=== PATIENT | male | born 1985 | race Caucasian/White ===

== ENCOUNTER → 2021-01-13 | Outpatient (CLI) | payer OTHER ==
--- NOTE | 2021-01-13 16:19 | KCIC ---
Two-view chest dated 01/13/2021. No comparison available. CLINICAL INDICATION: Midsternal pain for months. FINDINGS: PA and lateral views obtained. Heart and mediastinal contours within normal limits. Lungs are clear. No consolidation or pleural effusion. No pneumothorax. IMPRESSION: No acute radiographic abnormality. Electronically signed by: Checo Connell MD (01/13/2021 4:17 PM) [id number]
== END ==
LOC: KCIC 15:22
PROVIDERS: ATTEND Family Medicine
DX: R07.89 Other chest pain (principal)
CPT/HCPCS: 71046

== ENCOUNTER → 2021-02-17 | Outpatient (CLI) | payer OTHER ==
--- NOTE | 2021-02-17 13:05 | KCIC ---
EXAM: Chest, 2 views. HISTORY: Fever. COMPARISON: 01/13/2021 FINDINGS: 2 views of the chest are obtained. There is focal increased opacity within the inferior lat eral right thorax and the frontal projection which may be due to asymmetric overlying soft tissues or interstitial infiltrate. There is no consolidation, pleural effusion or pneumothorax. The heart is n ormal in size. IMPRESSION: Focal right lower thoracic opacity due to asymmetric overlying soft tissues or lower lobe interstitial infiltrate. Electronically signed by: Kim Leal MD (02/17/2021 1:02 PM) [id number]
== END ==
LOC: KCIC 12:29
PROVIDERS: ATTEND Family Medicine
DX: R50.9 Fever, unspecified (principal)
CPT/HCPCS: 71046

== ENCOUNTER → 2021-03-26 | Outpatient (CLI) | payer OTHER ==
--- NOTE | 2021-03-27 09:10 | KCIC ---
XR CERVICAL SPINE 2-3V History: Reason: Neck pain 1 month, no known injury. / Spl. Instructions: / History: Technique: 3 views cervical spine. Comparison: None. Findings: Normal vertebral body height and alignment. No acute fracture. Normal alignment C1 on C2. Disc spaces are well-maintained. Prevertebral soft tissues are unremarkable. Impression: 1. No acute osseous abnormality. Electronically signed by: Colt Ronquillo DO (03/27/2021 9:08 AM) [id number]
== END ==
LOC: KCIC 10:55
PROVIDERS: ATTEND Family Medicine
DX: M54.2 Cervicalgia (principal)
CPT/HCPCS: 72040

== ENCOUNTER → 2021-06-02 | Outpatient (CLI) | payer OTHER ==
[~2021-06-02] VITALS: Ht 180.3 cm; Wt 82.6 kg
[~2021-06-02] MED LIST: NORMAL SALINE IV ONE; OXYC-325 PO; SINCALIDE IV ONE
--- NOTE | 2021-06-02 10:39 | RAD ---
INDICATION: Reason: NEUTROPENIA, FEVER / Spl. Instructions: / History: Abdomen pain. COMPARISON: None. TECHNIQUE: 5.5mCi of Tc99m Choletec was injected intravenously followed by scintigraphic images of the abdomen. 1.7 mcg of CCK was then injected and a gallbladder ejection fraction was calculated. FINDINGS: Appropriate radiotracer clearance from the blood pool. Appropriate radiotracer excretion into the biliary tree. Prompt passage of contrast into the small bowel. Visualization of the gallbladder prior to the 60 minute time point. Gallbladder ejection fraction is 10 percent. IMPRESSION: * No scintigraphic evidence of acute cholecystitis or high grade biliary obstruction. * Gallbladder ejection fraction is decreased. Can be seen with causes such as biliary dyskinesia. Electronically signed by: Kareem Erickson MD (06/02/2021 10:37 AM) [id number]
== END ==
LOC: NM 10:21
PROVIDERS: ATTEND Family Medicine
DX: D70.9 Neutropenia, unspecified (principal); R50.9 Fever, unspecified
CPT/HCPCS: 78227; A9537; J2805

== ENCOUNTER → 2021-06-30 | Outpatient (CLI) | payer OTHER ==
[~2021-06-30] MED LIST changes: -NORMAL SALINE IV ONE; -SINCALIDE IV ONE
== END ==
LOC: LAB 10:01
PROVIDERS: ATTEND Surgery
DX: Z01.812 Encounter for preprocedural laboratory examination (principal); Z20.822 Contact with and (suspected) exposure to COVID-19; K82.8 Other specified diseases of gallbladder
CPT/HCPCS: U0003; U0005

== ENCOUNTER 2021-07-05 09:20 | Day surgery (SDC) | payer OTHER ==
[~2021-07-05] VITALS: Ht 180.3 cm; Wt 82.0 kg
[~2021-07-05 09:20] MED LIST changes: +HYDROmorphone 2 MG/ML VIAL IVP PRN; +IV RINGERS,LACTATED 1000ML 1,000 ML IV SCH; +MORPHINE SULFATE 2 MG/ML INJ. IVP PRN; -OXYC-325 PO; +PROCHLORPERAZINE 10 MG/2 ML VIAL. IVP PRN; +fentaNYL PF VIAL 100 MCG/2 ML VIAL IVP PRN
[2021-07-05 09:45] VITALS: BP 138/79
[2021-07-05] MEDS ORDERED: ROCURONIUM 50 MG/5 ML VIAL. ONE (10:04)
[2021-07-05] MEDS ORDERED: NEOSTIGMINE METHYLSULFATE 5 MG/5 ML SYRINGE. ONE (10:04)
[2021-07-05] MEDS ORDERED: SEVOFLURANE 31 TO 60 MINUTES. IH ONE (10:04)
[2021-07-05] MEDS ORDERED: PROPOFOL 10 MG/ML (20ML) VIAL. IV ONE (10:04)
[2021-07-05] MEDS ORDERED: DEXAMETHASONE SOD PHOS 4 MG/ML VIAL ONE (10:04)
[2021-07-05] MEDS ORDERED: ONDANSETRON PF 4 MG/2 ML VIAL. ONE (10:04)
[2021-07-05] MEDS ORDERED: MIDAZOLAM HCL/PF 2 MG/2 ML VIAL. ONE (10:04)
[2021-07-05] MEDS ORDERED: GLYCOPYRROLATE 1 MG/5 ML VIAL. ONE (10:04)
[2021-07-05] MEDS ORDERED: fentaNYL PF VIAL 100 MCG/2 ML VIAL ONE ×2 (10:04→12:33)
[2021-07-05] MEDS ORDERED: IOHEXOL 300 MG/ML 50 ML VIAL. ONE (10:26)
[2021-07-05] MEDS ORDERED: SURGICEL HEMOSTAT 4X8 EACH. ONE (10:26)
[2021-07-05] MEDS ORDERED: BUPIVACAINE MPF 0.5% 30 ML VIAL. ONE (10:27)
[2021-07-05] MEDS ORDERED: DEXMEDETOMIDINE 200 MCG/2 ML VIAL. IV PRN (11:30)
[2021-07-05] MEDS ORDERED: DEXMEDETOMIDINE 400 MCG in IV NORMAL SALINE 100ML 96 ML IV PRN (11:30)
[2021-07-05] MEDS ORDERED: HYDROmorphone 2 MG/ML VIAL ONE (11:39)
[2021-07-05] MEDS ORDERED: ePHEDrine PF IN SALINE 50 MG/10 ML SYRINGE. IV ONE (12:10)
--- NOTE | 2021-07-05 12:24 | RAD ---
C-arm fluoroscopy with fluoroscopic spot views Clinical indications: Laparoscopic cholecystectomy. Intraoperative cholangiogram. History of low gall bladder ejection fraction. Total fluoroscopic time: 0.7 minutes. Total fluoroscopic spot images: 3. FINDINGS/ IMPRESSION: No dilatation of the extrahepatic biliary tree is seen. There is free flow of contrast ma terial from the common bile duct into the duodenum. No stricture or stone is apparent. Electronically signed by: Marcus Roberto MD (07/05/2021 12:22 PM) [id number]
--- NOTE | 2021-07-05 12:28 | PDOC4 ---
Operative Note Operative Note Operative Note: Preoperative Diagnosis: Biliary dyskinesia Postoperative Diagnosis: Same Procedure: Laparoscopic cholecystectomy with intraoperative cholangiogram Surgeons: Yao Delivery Table Operator: Miguel Chin MS 4 Anesthesia: Gen. Estimated Blood Loss: 10 mL Specimen: Gallbladder to pathology Drains: None Complications: None Indications: The patient is a 35-year-old male who is referred with biliary dysk inesia.. Surgical treatment was offered by means of a laparoscopic cholecystectomy. The risks of surgery were discussed which include bleeding, infection, bile duct injury, bile leak, pain, the potential for additional surgeries or procedures. The patient understands and would like to proceed. Description: The patient was taken to the operating room and laid supine on the operating table. General anesthesia was performed. The abdomen was prepped with ChloraPrep and draped in a standard surgical fashion. A small infraumbilical incision was made with a scalpel. The Veress needle was then inserted and a pneumoperitoneum was then created. A 5 mm trocar was then inserted and the laparoscope was introduced. In the upper midabdomen a 5 mm trocar was inserted and in the right upper quadrant two 2.3 mm mini lap graspers were inserted. The gallbladder was retracted cephalad. The cystic duct was dissected free from surrounding tissues. One clip was placed on the duct near the gallbladder junction. An opening was made in the duct and a cholangiocatheter placed within and secured with a clip. Using contrast dye and fluoroscopy an intraoperative cholangiogram was performed that appeared unremarkable. The clip and catheter were then withdrawn. Three clips were placed on the cystic duct and it was divided. The cystic artery was then identified, dissected free, doubly clipped and divided as well. The gallbladder was then mobilized away from the liver with cautery. The umbilical 5 millimeter trocar was exchanged for an 11 millimeter trocar. The gallbladder was then placed in an endoscopic bag and extracted at the umbilical trocar site. The fascia there was closed with an 0 Vicryl suture and infiltrated with 0.5% marcaine. All blood and irrigation fluid was suctioned and hemostasis was good. The remaining ports were removed and the pneumoperitoneum was relieved. The skin incisions were closed using 4-0 Monocryl suture. Steri-Strips and dressings were then applied. The patient tolerated the procedure well and was sent to the recovery room in stable condition. At the end of the case all counts were correct. REGINA CARVALHO MD Jul 05, 2021 12:28
[2021-07-05] MEDS ORDERED: OXYC-325 PO (12:30)
--- NOTE | 2021-07-05 12:30 | DISCH ---
DISCHARGE INSTRUCTIONS Condition on Discharge Condition on Discharge: Stable Activity After Discharge Activity Instructions for Disc: Other, see below (no lifting over 20 lbs X 2 weeks, no driving while taking pain meds) Diet after Discharge Diet after Discharge: Regular Wound Incision Care Wound/Incision Care: Other, see below (may remove bandaids tomorrow and shower) Follow-Up Follow up with: Dr Carvalho in office in 2 weeks, call for appointment REGINA CARVALHO MD Jul 05, 2021 12:30
[2021-07-05] MEDS: fentaNYL PF VIAL 100 MCG/2 ML VIAL IVP PRN ×2 (12:35→12:53)
[2021-07-05] MEDS ORDERED: oxyCODONE/APAP 5/325 1 TAB TABLET ONE (12:57)
[2021-07-05] MEDS ORDERED: oxyCODONE/APAP 5/325 1 TAB TABLET PO ONE ×2 (13:00→16:00)
[2021-07-05 13:06] VITALS: BP 117/75
--- NOTE | 2021-07-06 13:10 | PATHOLOGY ---
[facility] Accession Number: [id number] . 01 Material submitted: . gallbladder - GALLBLADDER AND CONTENTS . 01 Clinical history: . LAP EVA W/ GRAMS . 02 Diagnosis: Gallbladder, laparoscopic cholecystectomy: - Chronic cholecystitis. LBQ 07/06/2021 1004 Local . 02 Comment: There are no calculi identified within the gallbladder lumen or specimen container. There is no evidence of malignancy. (JPM/db; 07/06/2021) . 02 Electronically signed: . Bennie Stanton MD, Pathologist NPI- [id number] . 01 Gross description: . Fixative: Formalin Labeled: Gallbladder and contents Specimen received: Intact gallbladder Dimensions: 6.7 x 3.1 x 2.8 cm Serosa: Purple-snowden and smooth Lymph node: Not identified Mucosa: Velvety, bile-stained Average wall thickness: 0.1 cm Calculi: None present Abnormalities: None identified . A1- Register Clerk body, fundus, and the cystic duct margin. ([facility]; 07/05/2021) NRI/NRI 07/05/2021 1556 Local . 02 Pathologist provided ICD-10: K81.1 . 02 CPT . 190958 Specimen Comment: A courtesy copy of this report has been sent to [phone] Specimen Comment: Report sent to Performed at: 01 [facility] [address], [place] [id number] MD Elbert Kim MD Phone: [phone] Performed at: 02 [facility] [address] [place], [place] [id number] MD Bennie Stanton MD Phone: [phone]
== END 2021-07-05 13:42 | disposition home or self-care (01) ==
LOC: SURG 09:20
PROVIDERS: ATTEND Surgery
DX: K82.8 Other specified diseases of gallbladder (principal); K81.1 Chronic cholecystitis; Z79.899 Other long term (current) drug therapy; Z98.890 Other specified postprocedural states
CPT/HCPCS: 47563; 74300; J0690; J1100; J1170; J2250; J2405; J2704; J2710; J3010; J3490; Q9967; 88304; A4213; A4314; A4657; A4930; C1887

== ENCOUNTER 2021-07-27 01:19 | Emergency (ER) | payer OTHER ==
[~2021-07-27] VITALS: Ht 180.3 cm; Wt 81.8 kg
[~2021-07-27 01:19] MED LIST changes: -HYDROmorphone 2 MG/ML VIAL IVP PRN; -IV RINGERS,LACTATED 1000ML 1,000 ML IV SCH; -MORPHINE SULFATE 2 MG/ML INJ. IVP PRN; +OXYC-325 PO; -PROCHLORPERAZINE 10 MG/2 ML VIAL. IVP PRN; -fentaNYL PF VIAL 100 MCG/2 ML VIAL IVP PRN
[2021-07-27 01:57] LABS: BASO # 0.1 x10^3/uL (0.0-0.2); BASO % 1 % (0-3); EOS # 0.2 x10^3/uL (0.0-0.7); EOS % 3 % (0-3); HEMATOCRIT 42.2 % (39.0-53.0); HEMOGLOBIN 14.3 g/dL (13.0-17.5); LYMPH % 56 % (24-48); MEAN CORPUSCULAR HEMOGLOBIN 31 pg (25-35); MEAN CORPUSCULAR HGB CONC 34 g/dL (31-37); MEAN CORPUSCULAR VOLUME 93 fL (79-100); MONO # 0.4 x10^3/uL (0.0-1.1); MONO % 6 % (0-9); NEUT # 2.4 x10^3/uL (1.8-7.7); NEUT % 34 % (31-73); PLATELET COUNT 217 x10^3/uL (140-400); RED BLOOD COUNT 4.56 x10^6/uL (4.30-5.70); RED CELL DISTRIBUTION WIDTH 12.5 % (11.5-14.5); WHITE BLOOD COUNT 7.1 x10^3/uL (4.0-11.0)
[2021-07-27 02:08] LABS: CALCIUM 9.2 mg/dL (8.5-10.1); CREATININE 0.9 mg/dL (0.7-1.3); POTASSIUM 3.5 mmol/L (3.5-5.1)
[2021-07-27 02:12] LABS: ALBUMIN 4.1 g/dL (3.4-5.0); ALBUMIN/GLOBULIN RATIO 1.1 (1.0-1.7); TOTAL BILIRUBIN 0.4 mg/dL (0.2-1.0); TOTAL PROTEIN 7.9 g/dL (6.4-8.2)
[2021-07-27] MEDS ORDERED: CONTRAST GIVEN. MC PRN (02:15)
[2021-07-27 02:26] LABS: BILIRUBIN,URINE NEGATIVE (NEG); CLARITY,URINE CLEAR; COLOR,URINE YELLOW; NITRITE,URINE NEGATIVE (NEG); PROTEIN,URINE NEGATIVE (NEG-TRACE); UROBILINOGEN,URINE 0.2 mg/dL (0.2 mg/dL)
[2021-07-27] MEDS ORDERED: KETOROLAC 30 MG/ML VIAL. IVP ONE (02:30)
[2021-07-27] MEDS ORDERED: DICYCLOMINE 20 MG/2 ML VIAL. IM ONE (02:30)
[2021-07-27] MEDS ORDERED: IOHEXOL 300 MG/ML 100ML VIAL. IV ONE (02:30)
[2021-07-27 02:36] LABS: BACTERIA,URINE 0 /HPF (0-FEW); RBC,URINE 0 /HPF (0-2); WBC,URINE 0 /HPF (0-4)
--- NOTE | 2021-07-27 03:04 | EKG ---
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
--- NOTE | 2021-07-27 03:21 | PHYS DOC ---
Past Medical History Past Surgical History: Cholecystectomy Smoking Status: Never Smoker Alcohol Use: Occasionally Adult General Chief Complaint Chief Complaint: MULTIPLE COMPLAINTS HPI HPI The patient is a 35-year-old male with a history of laparoscopic cholecystectomy completed about 3 weeks ago. He presents for evaluation of acute onset of bilateral upper quadrant abdominal discomfort with radiation to the right upper back with onset about 45 minutes prior to arrival. Patient states he was sitting on the couch when pain started. It is crampy and waxes and wanes but never truly goes away. Severity about 6 out of 10 at present. Discomfort is directly reproducible to palpation of the upper abdomen. Associated nausea without vomiting. No associated fevers, upper respiratory congestion/rhinorrhea, cough, sore throat, shortness of breath or chest pain of any kind, specifically right-sided or lower abdominal pain of any kind, flank pain, midline back pain, dysuria, hematuria, polyuria or oliguria, groin pain, changes in bowel habits, weakness, numbness or tingling to arms or legs. Patient is alert and pleasantly and appropriately interactive and in no acute distress with completely appropriate vital signs upon initial evaluation here in the emergency department. He ambulated in with a narrow, steady, non-ataxic gait. Review of Systems Review of Systems A 12 point review of systems was completed and was negative except where noted in HPI above. Current Medications Current Medications Current Medications Medications (Trade) Dose Ordered Sig/Gerry Start Time Stop Time Status Last Admin Dose Admin Dicyclomine HCl (Bentyl) 20 mg 1X ONCE 07/27/21 02:30 07/27/21 02:31 DC 07/27/21 02:12 20 MG Famotidine (Pepcid) 20 mg 1X ONCE 07/27/21 04:15 07/27/21 04:16 UNV Info (CONTRAST GIVEN -- Rx MONITORING) 1 each PRN DAILY PRN 07/27/21 02:15 07/29/21 02:14 Iohexol (Omnipaque 300 Mg/ml) 75 ml 1X ONCE 07/27/21 02:30 07/27/21 02:31 DC 07/27/21 02:28 75 ML Ketorolac Tromethamine (Toradol 30mg Vial) 30 mg 1X ONCE 07/27/21 02:30 07/27/21 02:31 DC 07/27/21 02:12 30 MG Multi-Ingredient Mouthwash/Gargle (Gi Cocktail) 20 ml 1X ONCE 07/27/21 04:15 07/27/21 04:16 UNV Allergies Allergies Allergies Coded Allergies Type Severity Reaction Last Updated Verified No Known Drug Allergies 07/05/21 No Physical Exam Physical Exam Younger male appearing nontoxic and in no acute distress. Head is normocephalic and atraumatic. Neck is supple and nontender. Oropharynx is moist. Lungs are clear to auscultation at all stations. There is a normal S1 and S2 without rubs or gallops and capillary refill is appropriate, less than 2 seconds globally. Abdomen is soft and nondistended with mild bilateral upper quadrant tenderness to palpation without rebound or guarding. No lower abdominal tenderness to palpation. No pulsatile mass. Skin is warm and dry without cyanosis, clubbing or edema. Psychiatrically, the patient demonstrates appropriate mood and affect and is alert. Evaluation of the back reveals no erythema, warmth, swelling, midline tenderness, or other acute abnormality seen. Current Patient Data Vital Signs Vital Signs Date Time Temp Pulse Resp B/P (MAP) Pulse Ox O2 Delivery O2 Flow Rate FiO2 07/27/21 02:11 84 16 135/84 (101) 100 Room Air 07/27/21 01:40 97.4 97.4 Lab Values Laboratory Tests Test 07/27/21 01:42 07/27/21 02:19 White Blood Count 7.1 x10^3/uL (4.0-11.0) Red Blood Count 4.56 x10^6/uL (4.30-5.70) Hemoglobin 14.3 g/dL (13.0-17.5) Hematocrit 42.2 % (39.0-53.0) Mean Corpuscular Volume 93 fL (79-100) Mean Corpuscular Hemoglobin 31 pg (25-35) Mean Corpuscular Hemoglobin Concent 34 g/dL (31-37) Red Cell Distribution Width 12.5 % (11.5-14.5) Platelet Count 217 x10^3/uL (140-400) Neutrophils (%) (Auto) 34 % (31-73) Lymphocytes (%) (Auto) 56 % (24-48) H Monocytes (%) (Auto) 6 % (0-9) Eosinophils (%) (Auto) 3 % (0-3) Basophils (%) (Auto) 1 % (0-3) Neutrophils # (Auto) 2.4 x10^3/uL (1.8-7.7) Lymphocytes # (Auto) 4.0 x10^3/uL (1.0-4.8) Monocytes # (Auto) 0.4 x10^3/uL (0.0-1.1) Eosinophils # (Auto) 0.2 x10^3/uL (0.0-0.7) Basophils # (Auto) 0.1 x10^3/uL (0.0-0.2) Sodium Level 141 mmol/L (136-145) Potassium Level 3.5 mmol/L (3.5-5.1) Chloride Level 102 mmol/L (98-107) Carbon Dioxide Level 29 mmol/L (21-32) Anion Gap 10 (6-14) Blood Urea Nitrogen 15 mg/dL (8-26) Creatinine 0.9 mg/dL (0.7-1.3) Estimated GFR (Cockcroft-Gault) 95.0 BUN/Creatinine Ratio 17 (6-20) Glucose Level 87 mg/dL (70-99) Calcium Level 9.2 mg/dL (8.5-10.1) Total Bilirubin 0.4 mg/dL (0.2-1.0) Aspartate Amino Transferase (AST) 26 U/L (15-37) Alanine Aminotransferase (ALT) 46 U/L (16-63) Alkaline Phosphatase 61 U/L (46-116) Troponin I High Sensitivity 6 ng/L (4-75) Total Protein 7.9 g/dL (6.4-8.2) Albumin 4.1 g/dL (3.4-5.0) Albumin/Globulin Ratio 1.1 (1.0-1.7) Lipase 143 U/L (73-393) Urine Collection Type Unknown Urine Color Yellow Urine Clarity Clear Urine pH 7.0 (<5.0-8.0) Urine Specific [place] <=1.005 (1.000-1.030) Urine Protein Negative mg/dL (NEG-TRACE) Urine Glucose (UA) Negative mg/dL (NEG) Urine Ketones (Stick) Negative mg/dL (NEG) Urine Blood Negative (NEG) Urine Nitrite Negative (NEG) Urine Bilirubin Negative (NEG) Urine Urobilinogen Dipstick 0.2 mg/dL (0.2 mg/dL) Urine Leukocyte Esterase Negative (NEG) Urine RBC 0 /HPF (0-2) Urine WBC 0 /HPF (0-4) Urine Squamous Epithelial Cells Occ /LPF Urine Bacteria 0 /HPF (0-FEW) Laboratory Tests 07/27/21 01:42 Laboratory Tests 07/27/21 01:42 EKG EKG Sinus rhythm, rate 98, no acute ST elevation or depression, T wave inversion lead III only, nonspecific, OR 118, QRS 88, QTc 469, EP interpretation. Nonischemic tracing, intervals appropriate. Radiology/Procedures Radiology/Procedures EXAM: CHEST ONE VIEW. HISTORY: Chest pain. COMPARISON: 02/17/2021. FINDINGS: A frontal view of the chest is obtained. There are no confluent infiltrates. There is no pneumothorax or pleural effusion. The heart is not enlarged. IMPRESSION: 1. No confluent infiltrates. Electronically signed by: Fran Pearson MD (07/27/2021 3:43 AM) [id number] DICTATED and SIGNED BY: SKY PEARSON MD DATE: 07/27/21 [id number] EXAM: CT ABDOMEN/PELVIS WITH CONTRAST. HISTORY: Upper abdominal pain. Recent cholecystectomy. TECHNIQUE: Computed tomography of the abdomen and pelvis was performed after the intravenous administration of iodinated contrast. One or more of the following individualized dose reduction techniques were utilized for this examination: 1. Automated exposure control. 2. Adjustment of the mA and/or kV according to patient size. 3. Use of iterative reconstruction technique. COMPARISON: None. FINDINGS: Lung windows through the visualized portions of the bases reveal mild atelectasis. Bone windows reveal no suspicious lesions. The liver, pancreas, adrenal glands and spleen are unremarkable. A 1 cm cyst in the right kidney appears benign. The left kidney is unremarkable. There are changes of cholecystectomy. No complications are identified. There is no biliary dilatation. There are no pathologically enlarged lymph nodes. There is no evidence of appendicitis. There is no small bowel obstruction. IMPRESSION: 1. No evidence of complication status post cholecystectomy. Electronically signed by: Fran Pearson MD (07/27/2021 3:53 AM) [id number] DICTATED and SIGNED BY: SKY PEARSON MD DATE: 07/27/21 [id number] Course & Med Decision Making Course & Med Decision Making 35-year-old gentleman 3 weeks status post laparoscopic cholecystectomy presenting for upper abdominal pain which woke him from sleep. No clear etiology for symptoms is identified by labs or imaging today, all of which is unremarkable and reassuring. Upon serial reassessments after medication as per flowsheet here in the emergency department, patient endorses resolution of his discomfort. He is feeling much better. In view of reassuring work-up in this well-appearing patient and resolution of symptoms, will discharge home to [facility] w-up closely with primary care. Will discharge with some empiric Pepcid as well as some Bentyl and Tylenol. Patient understands that if he feels worse instead of better or develops other new symptoms of concern that he will need to return to the emergency department immediately for reevaluation. All questions were answered. Dragon Disclaimer Dragon Disclaimer This electronic medical record was generated, in whole or in part, using a voice recognition dictation system. Departure Departure Impression: Primary Impression: Upper abdominal pain Disposition: HOME / SELF CARE / HOMELESS Condition: IMPROVED Referrals: Jayne LEWIS MD (PCP) Patient Instructions: Abdominal Pain (Nonspecific) Additional Instructions: Follow-up very closely with your primary care doctor in the office in the next 2 to 4 days for a reevaluation of your symptoms and to discussion of next best steps in care. Begin taking the Pepcid antiacid medication twice a day, once in the morning and once in the evening. For any pain that develops, you may try taking a 500 mg Tylenol pill every 6 hours as needed. You may also try taking a 10 mg Bentyl pill every 6 hours as needed. Drink plenty of fluids. Return to the emergency department right away as we discussed for worsening symptoms of any kind or with any other new symptoms of concern. Scripts Famotidine (PEPCID) 20 Mg Tablet 20 MG PO BID, #60 TAB Prov: KENNA BAIN MD 07/27/21 Dicyclomine Hcl (DICYCLOMINE HCL) 10 Mg Capsule 1 CAP PO PRN Q6HRS for abd pain/spasm, #14 CAP 3 Refills Prov: KENNA BAIN MD 07/27/21 Acetaminophen (ACETAMINOPHEN) 500 Mg Tablet 1 TAB PO PRN Q6HRS PRN for pain or fever, #60 TAB 0 Refills Prov: KENNA BAIN MD 07/27/21 KENNA BAIN MD Jul 27, 2021 03:20
--- NOTE | 2021-07-27 03:46 | RAD ---
EXAM: CHEST ONE VIEW. HISTORY: Chest pain. COMPARISON: 02/17/2021. FINDINGS: A frontal view of the chest is obtained. There are no confluent infiltrates. There is no pneumothorax or pleural effusion. The heart is not en larged. IMPRESSION: 1. No confluent infiltrates. Electronically signed by: Fran Pearson MD (07/27/2021 3:43 AM) [id number]
--- NOTE | 2021-07-27 03:55 | RAD ---
EXAM: CT ABDOMEN/PELVIS WITH CONTRAST. HISTORY: Upper abdominal pain. Recent cholecystectomy. TECHNIQUE: Computed tomography of the abdomen and pelvis was performed after the intravenous administ ration of iodinated contrast. One or more of the following individualized dose reduction techniques w ere utilized for this examination: 1. Automated exposure control. 2. Adjustment of the mA and/or kV according to patient size. 3. Use of iterative reconstruction technique. COMPARISON: None. FINDINGS: Lung windows through the visualized portions of the bases reveal mild atelectasis. Bone win dows reveal no suspicious lesions. The liver, pancreas, adrenal glands and spleen are unremarkable. A 1 cm cyst in the right kidney appe ars benign. The left kidney is unremarkable. There are changes of cholecystectomy. No complications are identified. There is no biliary dilatation . There are no pathologically enlarged lymph nodes. There is no evidence of appendicitis. There is no s mall bowel obstruction. IMPRESSION: 1. No evidence of complication status post cholecystectomy. Electronically signed by: Fran Pearson MD (07/27/2021 3:53 AM) [id number]
[2021-07-27] MEDS ORDERED: FAMO-63 PO (04:22)
[2021-07-27] MEDS ORDERED: ACET500T68 PO (04:22)
[2021-07-27] MEDS ORDERED: DICY10CA3 PO (04:22)
[2021-07-27 04:25] VITALS: BP 118/85
[2021-07-27] MEDS ORDERED: FAMOTIDINE 20 MG TABLET. PO ONE (04:30)
[2021-07-27] MEDS ORDERED: LIDO:MAALOX 1:1 20 ML SINGLE DOSE. SWSW ONE (04:30)
== END 2021-07-27 04:35 | disposition home or self-care (01) ==
LOC: ER 01:19
DX: R10.11 Right upper quadrant pain (principal); R10.12 Left upper quadrant pain; Z90.49 Acquired absence of other specified parts of digestive tract
CPT/HCPCS: 36415; 71045; 74177; 80053; 81001; 83690; 84484; 85025; 93005; 96372; 96374; 99285; J0500; J1885; Q9967

== ENCOUNTER 2021-08-13 13:13 | Emergency (ER) | payer OTHER ==
[~2021-08-13 13:13] MED LIST changes: +ACET500T68 PO; +DICY10CA3 PO; +FAMO-63 PO
== END 2021-08-13 13:22 | disposition left against medical advice (07) ==
LOC: ER 13:13
DX: T78.40XA Allergy, unspecified, initial encounter (principal); Z53.21 Procedure and treatment not carried out due to patient leaving prior to being seen by health care provider